=== PATIENT | female | born 1960 | race Caucasian/White ===

== ENCOUNTER → 2024-05-30 14:26 | Outpatient (REF) | payer MEDICARE, SELFPAY | LOC: RAD 14:26 | PROVIDERS: ATTENDING PHYSICIAN Nurse Practitioner Acute Care; FAMILY PHYSICIAN Family Medicine | DX: C34.31 Malignant neoplasm of lower lobe, right bronchus or lung (principal) | CPT/HCPCS: 71260; Q9967 ==